=== PATIENT | male | born 1935 | race Caucasian/White ===

== ENCOUNTER 2016-10-14 14:28 | Inpatient (IN) | payer OTHER, MEDICARE ==
[~2016-10-14] VITALS: Ht 167.6 cm; Wt 107.8 kg
[2016-10-14] VITALS (10 sets, daily range): BP systolic 65–129; BP diastolic 49–69; PULSE 109–132; RESP 16–21; TEMP 98.2–98.5; O2SAT 96–100
[2016-10-14] MEDS ORDERED: PROPOFOL 500 MG/50 ML INJ 50 ML ONE (14:37)
[2016-10-14] MEDS ORDERED: PROPOFOL 1000 MG/100 ML INJ 100 ML ONE (14:39)
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
[2016-10-14 15:02] LABS: AUTOMATED NEUTROPHIL # 10.4 TH/MM3 (1.8-7.7); BASOPHIL # 0.1 TH/MM3 (0-0.2); BASOPHIL % 0.8 % (0.0-2.0); EOSINOPHIL # 0.3 TH/MM3 (0-0.4); EOSINOPHIL % 1.9 % (0.0-4.0); HEMATOCRIT 32.5 % (39.0-51.0); HEMO FLAGS DIFF FINAL; I-STAT POTASSIUM 3.7 MMOL/L (3.5-4.9); I-STAT SODIUM 143 MMOL/L (138-146); LYMPHOCYTE # 2.8 TH/MM3 (1.0-4.8); MEAN CELL VOLUME 89.7 FL (80.0-100.0); MEAN CORPUSCULAR HEMOGLOBIN 30.1 PG (27.0-34.0); MEAN CORPUSCULAR HGB CONC 33.6 % (32.0-36.0); NEUT % 71.3 % (16.0-70.0); PLATELET COUNT 356 TH/MM3 (150-450); RED BLOOD COUNT 3.62 MIL/MM3 (4.50-5.90); RED CELL DISTRIBUTION WIDTH 13.9 % (11.6-17.2); WHITE BLOOD COUNT 14.6 TH/MM3 (4.0-11.0)
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
[2016-10-14] MEDS ORDERED: MIDAZOLAM HCL 5 MG/ML VIAL (1 ML) ONE (15:11)
[2016-10-14] MEDS ORDERED: SODIUM CHLORIDE 0.9% FLUSH 10 ML FLUSH IV FLUSH PRN (15:15)
[2016-10-14] MEDS ORDERED: MISCELLANEOUS NURSING INFORMATION XX SCH (15:15)
[2016-10-14] MEDS ORDERED: CHLORHEXIDINE GLUCONATE 2 % 1 PACK (2 CLOTHS) TOP PRN (15:15)
[2016-10-14 15:16] LABS: PROTHROMBIN TIME - PATIENT 11.5 SEC (9.8-11.6)
[2016-10-14] MEDS ORDERED: LABETALOL HCL 100 MG/20 ML VIAL ONE (15:19)
[2016-10-14 15:20] LABS: APTT (PATIENT) 21.2 SEC (24.3-30.1)
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
[2016-10-14] MEDS: PANTOPRAZOLE SODIUM 40 MG VIAL IV SCH (15:30)
[2016-10-14] MEDS: LACTULOSE SYRUP 20 GM/30 ML CUP PO SCH (15:30)
[2016-10-14] MEDS ORDERED: IOHEXOL 350 MG/ML 10 ML VIAL (for RAD DIAG) IV ONE (15:39)
[2016-10-14] MEDS: SODIUM CHLOR 0.9% 1000 ML INJ 1,000 ML IV SCH (16:00)
[2016-10-14] MEDS ORDERED: ROCURONIUM INJ 50 MG/5 ML VIAL ONE (16:08)
[2016-10-14] MEDS ORDERED: ETOMIDATE 20 MG/10 ML VIAL ONE (16:08)
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
[2016-10-14] MEDS ORDERED: fentaNYL DRIP 250 ML IV SCH (16:15)
[2016-10-14] MEDS ORDERED: PROPOFOL 1000 MG/100 ML INJ 100 ML IV SCH (16:15)
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
[2016-10-14] MEDS ORDERED: NOREPINEPHRINE 4 MG/4 ML AMP ONE (16:17)
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
[2016-10-14] MEDS ORDERED: 3% SALINE INJ 500 ML IV SCH (16:30)
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
[2016-10-14 16:36] LABS: BLOOD GAS CARBOXYHEMOGLOBIN 0.5 % (0-4); BLOOD GAS HCO3 22 mmol/L (22-26); BLOOD GAS METHEMOGLOBIN 1.6 % (0-2); BLOOD GAS O2 HGB SATURATION 97 % (90-100); BLOOD GAS OXYGEN CONTENT 12.9 Vol % (12.0-20.0); BLOOD GAS PCO2 44 mmHg (38-42); BLOOD GAS PO2 258 mmHg (61-120); CRITICAL VALUE NO; TEMP CORR TO 98.6
[2016-10-14 16:37] LABS: DRAW SITE RT BRACHIAL; FIO2 100 %; NUMBER OF ARTERIAL PUNCTURES 2; OXYGEN DEVICE VENTILATOR; STAT NO; ULNAR PULSE PRESENT
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
--- NOTE | 2016-10-14 17:31 | RADRPT ---
EXAM DATE/TIME: 10/14/2016 16:48 [facility] COMPARISON: CT THORAX W CONTRAST, October 14, 2016, 15:24. CHEST SINGLE AP, October 14, 2016, 14:24. INDICATIONS : Evaluate for central line placement. MEDICAL HISTORY : None. SURGICAL HISTORY : None. ENCOUNTER: Subsequent ACUITY: 1 day PAIN SCORE: Non-responsive. LOCATION: chest FINDINGS: A single portable frontal view of the chest shows interval placement of a left subclavian central javy e. Tip is at the cava atrial junction. No pneumothorax. Tip of the endotracheal tube 3 cm proximal to the ashtyn. Nasogastric tube coiled in the stomach. Scattered areas of consolidation involving the l yuridia bases bilaterally. These are unchanged. Heart is normal in size. No discrete effusion. CONCLUSION: 1. Central line in good position without pneumothorax. Stable basilar atelectasis versus infiltrates. Giorgi Razo Jr., MD on October 14, 2016 at 17:28 Board Certified Radiologist. This report was verified electronically.
--- NOTE | 2016-10-14 17:35 | RADRPT ---
EXAM DATE/TIME: 10/14/2016 16:55 [facility] COMPARISON: No previous studies available for comparison. INDICATIONS : Swelling and abation to proximal tibia. MEDICAL HISTORY : None. SURGICAL HISTORY : None. ENCOUNTER: Initial ACUITY: 1 day PAIN SCORE: Non-responsive. LOCATION: Left Tib/Fib FINDINGS: Two view examination of the left tibia demonstrates no evidence of fracture or dislocation. Bony min eralization is normal. The soft tissue structures are intact. CONCLUSION: No acute disease. Giorgi Razo Jr., MD on October 14, 2016 at 17:33 Board Certified Radiologist. This report was verified electronically.
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
[2016-10-14] MEDS ORDERED: MAGNESIUM SULFATE INJ 2 GM in SODIUM CHLORIDE 0.9% INJ 96 ML IV PRN (18:00)
[2016-10-14] MEDS ORDERED: POTASSIUM PHOSPHATE MONOBASIC 500 MG TAB PO PRN (18:00)
[2016-10-14] MEDS ORDERED: MAGNESIUM SULFATE INJ 4 GM in SODIUM CHLORIDE 0.9% INJ 92 ML IV PRN (18:00)
[2016-10-14] MEDS ORDERED: MAGNESIUM OXIDE 400 MG TAB PO PRN (18:00)
[2016-10-14] MEDS ORDERED: POTASSIUM CHLOR 40 MEQ PREMIX 100 ML IV PRN ×2 (18:00)
[2016-10-14] MEDS ORDERED: MIDAZOLAM 100 MG/ML INJ 100 ML IV SCH (18:00)
[2016-10-14] MEDS ORDERED: SODIUM PHOSPHATE INJ 30 MMOL in SODIUM CHLOR 0.9% 250 ML INJ 240 ML IV PRN (18:00)
[2016-10-14] MEDS ORDERED: POTASSIUM PHOSPHATE MONOBASIC 500 MG TAB PO/TUBE PRN (18:00)
[2016-10-14] MEDS ORDERED: POTASSIUM CHLOR 20 MEQ PREMIX 100 ML IV PRN ×2 (18:00)
[2016-10-14] MEDS ORDERED: POTASSIUM CHLORIDE 25 MEQ EFFERVESCENT TAB PO PRN (18:00)
[2016-10-14] MEDS ORDERED: 3% SALINE INJ 500 ML IV ONE (18:15)
[2016-10-14] MEDS ORDERED: GLUCAGON 1 MG/ML VIAL OTHER PRN (18:15)
[2016-10-14] MEDS ORDERED: DEXTROSE 50% IN WATER 50 ML VIAL(D50) IV PUSH PRN (18:15)
[2016-10-14] MEDS: INSULIN ASPART SUPPLEMENTAL SCALE SQ SCH (18:15)
[2016-10-14 18:49] LABS: AUTOMATED NEUTROPHIL # 16.3 TH/MM3 (1.8-7.7); BASOPHIL % 0.3 % (0.0-2.0); EOSINOPHIL % 0.2 % (0.0-4.0); HEMATOCRIT 28.4 % (39.0-51.0); HEMO FLAGS DIFF FINAL; LYMPH % 9.4 % (9.0-44.0); LYMPHOCYTE # 1.8 TH/MM3 (1.0-4.8); MEAN CELL VOLUME 90.8 FL (80.0-100.0); MEAN CORPUSCULAR HEMOGLOBIN 29.4 PG (27.0-34.0); MEAN CORPUSCULAR HGB CONC 32.4 % (32.0-36.0); MONO % 5.6 % (0.0-8.0); NEUT % 84.5 % (16.0-70.0); PLATELET COUNT 257 TH/MM3 (150-450); RED BLOOD COUNT 3.13 MIL/MM3 (4.50-5.90); RED CELL DISTRIBUTION WIDTH 13.7 % (11.6-17.2); WHITE BLOOD COUNT 19.3 TH/MM3 (4.0-11.0)
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
[2016-10-14 19:45] LABS: BLOOD GAS BASE EXCESS -6.2 mmol/L (-2-2); BLOOD GAS CARBOXYHEMOGLOBIN 0.5 % (0-4); BLOOD GAS HCO3 18 mmol/L (22-26); BLOOD GAS METHEMOGLOBIN 1.5 % (0-2); BLOOD GAS O2 HGB SATURATION 97 % (90-100); BLOOD GAS OXYGEN CONTENT 13.2 Vol % (12.0-20.0); BLOOD GAS PCO2 34 mmHg (38-42); BLOOD GAS PO2 168 mmHg (61-120); BLOOD GAS TOTAL HGB 9.5 G/DL (12.0-16.0); CRITICAL VALUE NO; OXYGEN DEVICE VENTILATOR; TEMP CORR TO 98.6
[2016-10-14 19:46] LABS: DRAW SITE ART LINE; FIO2 70 %; STAT NO; VENT SETTINGS PRVC/AC
[2016-10-14] MEDS: RESP: ALBUTEROL 2.5 MG/IPRATROPIUM 0.5 MG NEB (SCH) NEB (20:41)
[2016-10-14] MEDS: PROPOFOL 1000 MG/100 ML INJ 100 ML IV SCH (21:03)
--- NOTE | 2016-10-14 21:06 | PD.PROCEDR ---
Procedure Note Procedure Radial arterial line A time-out was completed verifying correct patient, procedure, site, positioning , and special equipment if applicable. Allens test was performed to ensure adequate perfusion. The patients right wrist was prepped and draped in sterile fashion. 1% Lidocaine was used to anesthetize the area. A 18G Arrow arterial line was introduced into the radial artery. The catheter was threaded over the guide wire and the needle was removed with appropriate pulsatile blood return. The catheter was then sutured in place to the skin and a sterile dressing applied. Perfusion to the extremity distal to the point of catheter insertion was checked and found to be adequate. Estimated Blood Loss: 1ml The patient tolerated the procedure well and there were no complications. Raza Ponce MD October 14, 2016 21:06
[2016-10-14] MEDS ORDERED: SODIUM CHLOR 0.9% 1000 ML INJ 3,000 ML IV ONE (21:30)
[2016-10-14] MEDS ORDERED: TERBUTALINE INJ 1 MG/ML AMP SQ PRN (21:45)
[2016-10-14] MEDS: CHLORHEXIDINE 0.12% (ORAL KIT) 15 ML CUP MT SCH (21:53)
[2016-10-14] MEDS: SODIUM CHLORIDE 0.9% FLUSH 10 ML FLUSH IV FLUSH SCH (21:54)
[2016-10-14] MEDS ORDERED: NOREPINEPHRINE INJ 4 MG in SODIUM CHLOR 0.9% 250 ML INJ 250 ML IV SCH (22:00)
[2016-10-14 22:05] LABS: BLOOD GAS BASE EXCESS -6.8 mmol/L (-2-2); BLOOD GAS CARBOXYHEMOGLOBIN 0.5 % (0-4); BLOOD GAS HCO3 18 mmol/L (22-26); BLOOD GAS METHEMOGLOBIN 1.5 % (0-2); BLOOD GAS O2 HGB SATURATION 97 % (90-100); BLOOD GAS OXYGEN CONTENT 10.6 Vol % (12.0-20.0); BLOOD GAS PCO2 36 mmHg (38-42); BLOOD GAS PO2 216 mmHg (61-120); BLOOD GAS TOTAL HGB 7.4 G/DL (12.0-16.0); CRITICAL VALUE NO; OXYGEN DEVICE VENTILATOR; TEMP CORR TO 98.6
[2016-10-14 22:06] LABS: DRAW SITE ART LINE; FIO2 60 %; STAT NO; VENT SETTINGS PRVC/AC
[2016-10-14 23:55] LABS: BICARBONATE 19.6 MEQ/L (21.0-32.0); MAGNESIUM 0.9 MG/DL (1.5-2.5); POTASSIUM 3.6 MEQ/L (3.5-5.1)
[2016-10-15] VITALS (25 sets, daily range): BP systolic 111–154; BP diastolic 46–60; PULSE 97–116; RESP 15–18; TEMP 98.4–99.3; O2SAT 99–100
[2016-10-15 00:11] LABS: CALCIUM-PROTEIN CORRECTED 7.9 MG/DL (8.5-10.1)
[2016-10-15] MEDS: INSULIN ASPART SUPPLEMENTAL SCALE SQ SCH ×4 (00:18→18:00)
[2016-10-15] MEDS: PROPOFOL 1000 MG/100 ML INJ 100 ML IV SCH ×3 (00:18→17:17)
[2016-10-15] MEDS: SODIUM CHLOR 0.9% 1000 ML INJ 1,000 ML IV SCH ×3 (00:19→19:00)
[2016-10-15] MEDS: RESP: ALBUTEROL 2.5 MG/IPRATROPIUM 0.5 MG NEB (SCH) NEB ×4 (03:34→19:42)
[2016-10-15] MEDS: CHLORHEXIDINE GLUCONATE 2 % 1 PACK (2 CLOTHS) TOP SCH (04:00)
[2016-10-15 04:53] LABS: BLOOD GAS BASE EXCESS -8.6 mmol/L (-2-2); BLOOD GAS CARBOXYHEMOGLOBIN 0.8 % (0-4); BLOOD GAS HCO3 16 mmol/L (22-26); BLOOD GAS METHEMOGLOBIN 1.2 % (0-2); BLOOD GAS O2 HGB SATURATION 96 % (90-100); BLOOD GAS OXYGEN CONTENT 10.2 Vol % (12.0-20.0); BLOOD GAS PCO2 30 mmHg (38-42); BLOOD GAS PO2 124 mmHg (61-120); BLOOD GAS TOTAL HGB 7.4 G/DL (12.0-16.0); CRITICAL VALUE YES; OXYGEN DEVICE VENTILATOR; TEMP CORR TO 98.6
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
[2016-10-15 04:54] LABS: VENT SETTINGS PRVC/AC
[2016-10-15 04:55] LABS: DRAW SITE ART LINE; FIO2 40 %; STAT NO
[2016-10-15] MEDS ORDERED: SODIUM CHLOR 0.9% 1000 ML INJ 1,000 ML IV SCH (05:00)
[2016-10-15 05:03] LABS: AUTOMATED NEUTROPHIL # 11.4 TH/MM3 (1.8-7.7); BASOPHIL % 0.3 % (0.0-2.0); HEMATOCRIT 22.8 % (39.0-51.0); HEMO FLAGS DIFF FINAL; LYMPH % 4.5 % (9.0-44.0); LYMPHOCYTE # 0.6 TH/MM3 (1.0-4.8); MEAN CELL VOLUME 90.4 FL (80.0-100.0); MEAN CORPUSCULAR HEMOGLOBIN 29.1 PG (27.0-34.0); MEAN CORPUSCULAR HGB CONC 32.2 % (32.0-36.0); MONO % 7.7 % (0.0-8.0); NEUT % 87.5 % (16.0-70.0); PLATELET COUNT 147 TH/MM3 (150-450); RED BLOOD COUNT 2.53 MIL/MM3 (4.50-5.90); RED CELL DISTRIBUTION WIDTH 13.9 % (11.6-17.2); WHITE BLOOD COUNT 13.1 TH/MM3 (4.0-11.0)
[2016-10-15 05:24] LABS: BICARBONATE 18.1 MEQ/L (21.0-32.0); POTASSIUM 3.8 MEQ/L (3.5-5.1)
[2016-10-15 05:35] LABS: CALCIUM-PROTEIN CORRECTED 7.7 MG/DL (8.5-10.1)
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
[2016-10-15] MEDS ORDERED: DIATRIZOATE MEGLUM/DIATRIZOATE SOD 9 ML CUP PO ONE (08:30)
[2016-10-15] MEDS: PANTOPRAZOLE SODIUM 40 MG VIAL IV SCH (08:54)
[2016-10-15] MEDS: CHLORHEXIDINE 0.12% (ORAL KIT) 15 ML CUP MT SCH ×2 (08:55→20:13)
[2016-10-15] MEDS: LACTULOSE SYRUP 20 GM/30 ML CUP PO SCH (08:55)
[2016-10-15] MEDS: SODIUM CHLORIDE 0.9% FLUSH 10 ML FLUSH IV FLUSH SCH ×2 (08:56→20:13)
--- NOTE | 2016-10-15 09:10 | RADRPT ---
EXAM DATE/TIME: 10/15/2016 08:21 [facility] COMPARISON: No previous studies available for comparison. INDICATIONS : Syncope. MEDICAL HISTORY : Hypertension. Carcinoma, pancreas. Syncope. Hyperlipidemia. Anticoagulant therapy, Aspirin. Arthri tis. Diabetes. SURGICAL HISTORY : Pancreatectomy. Left knee replacement. Left wrist surgery. ENCOUNTER: Initial ACUITY: 1 day PAIN SCORE: Nonresponsive. LOCATION: Bilateral neck PEAK SYSTOLIC VELOCITIES (cm/sec): ICA/CCA RATIO: Right: 1.2 Left: 1.2 ICA: Right: 104 Left: 128 CCA: Right: 87 Left: 109 ECA: Right: 143 Left: 233 VERTEBRAL: Right: 118 antegrade Left: 99 antegrade Elevated flow velocities and ICA/CCA ratios have been found to correlate with increased degrees of vessel stenosis, calculated as percentage of diameter relative to a normal segment of distal ICA/CCA FINDINGS: RIGHT CAROTID: Minimal plaque seen in the bulb and proximal internal carotid artery. LEFT CAROTID: No significant stenosis is visualized. The waveforms are within normal limits. VERTEBRAL ARTERIES: Antegrade flow is seen in both vertebral arteries. MISCELLANEOUS: None. CONCLUSION: Trace atherosclerotic plaque of the right carotid bifurcation. No hemodynamically significant narrowi ng on either side. Andrzej Vasquez MD on October 15, 2016 at 9:07 Board Certified Radiologist. This report was verified electronically.
[2016-10-15] MEDS: PHENYLEPHRINE INJ 40 MG in SODIUM CHLORID 0.9% 500 ML INJ 496 ML IV SCH ×2 (09:38→17:55)
[2016-10-15] MEDS: levETIRAcetam 500 MG/NS 100 ML IV SCH ×4 (10:17→20:13)
[2016-10-15] MEDS ORDERED: CALC1TAB63 PO (11:41)
[2016-10-15] MEDS ORDERED: ATOR40TA16 PO (11:41)
[2016-10-15] MEDS ORDERED: EXENINJ SQ (11:41)
[2016-10-15] MEDS ORDERED: ASPI81TA5 OTHER (11:41)
[2016-10-15] MEDS ORDERED: CURCPOW PO (11:41)
[2016-10-15] MEDS ORDERED: METF1000 PO (11:44)
[2016-10-15] MEDS ORDERED: LOSA100T2 PO (11:44)
[2016-10-15] MEDS ORDERED: GLIP1TAB51 PO (11:44)
[2016-10-15] MEDS ORDERED: VITA500T49 PO (11:44)
[2016-10-15] MEDS ORDERED: VIAG100T PO (11:44)
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
--- NOTE | 2016-10-15 12:15 | EC ---
Study Study Date:10/15/2016 STUDY CONCLUSIONS SUMMARY - Left ventricle: The cavity size was normal. Wall thickness was normal. Systolic function was hyperdynamic. The estimated ejection fraction was in the range of 65% to 70%. - Aortic valve: Valve area: 1.66cm^2 (Vmax). - Pulmonic valve: Peak gradient: 13mm Hg (S). If LV function is below 40, please consider prescribing an ACEI or ARB or document rationale for non-use. PROCEDURE DATA STUDY STATUS: Elective. Procedure: Transthoracic echocardiography. Image quality was good. Scanning was performed from the parasternal, apical, and subcostal acoustic windows. Study completion: The patient tolerated the procedure well. Transthoracic echocardiography. M-mode, complete 2D, complete spectral Doppler, and color Doppler. Patient status: Inpatient. CARDIAC ANATOMY LEFT VENTRICLE: Not well visualized. The cavity size was normal. Wall thickness was normal. Systolic function was hyperdynamic. The estimated ejection fraction was in the range of 65% to 70%. Images were inadequate for LV wall motion assessment. AORTIC VALVE: Trileaflet; normal thickness leaflets. Doppler: Transvalvular velocity was within the normal range. There was no stenosis. No regurgitation. Valve area: 1.66cm^2 (Vmax). Mean gradient: 9mm Hg (S). Peak gradient: 18mm Hg (S). AORTA: Aortic root: The aortic root was normal in size. MITRAL VALVE: Structurally normal valve. Doppler: Transvalvular velocity was within the normal range. There was no evidence for stenosis. No regurgitation. Peak gradient: 2mm Hg (D). LEFT ATRIUM: The atrium was normal in size. RIGHT VENTRICLE: The cavity size was normal. Wall thickness was normal. PULMONIC VALVE: Doppler: Transvalvular velocity was within the normal range. There was no evidence for stenosis. No regurgitation. Peak gradient: 13mm Hg (S). TRICUSPID VALVE: Structurally normal valve. Doppler: Transvalvular velocity was within the normal range. Trace regurgitation. PULMONARY ARTERY: The main pulmonary artery was normal-sized. Systolic pressure was within the normal range. RIGHT ATRIUM: The atrium was normal in size. PERICARDIUM: There was no pericardial effusion. SYSTEMIC VEINS: Inferior vena cava: The vessel was normal in size. BASIC MEASUREMENTS ADULT NORMAL Left ventricle LV internal dimension, ED, chordal level, 47 mm 43-52 PLAX LV internal dimension, ES, chordal level, 29.9 mm 23-38 PLAX Fractional shortening, chordal level, PLAX 36 % >29 LV posterior wall thickness, ED 11.7 mm IVS/LVPW ratio, ED 1.03 <1.3 Ventricular septum Septal thickness, ED 12 mm Aortic valve Leaflet separation 19 mm 15-26 Right ventricle RV internal dimension, ED, PLAX 30 mm 19-38 BASIC MEASUREMENTS ADULT NORMAL Aortic valve Leaflet separation 19 mm 15-26 Aorta Root diameter, ED 31 mm 20-37 Left atrium Anterior-posterior dimension, ES 38 mm 19-40 LA/aortic root ratio 1.23 DOPPLER MEASUREMENTS ADULT NORMAL Main pulmonary artery Pressure, S 23 mm Hg =30 Aortic valve Peak velocity, S 210 cm/s Mean velocity, S 136 cm/s VTI, S 32.5 cm Mean gradient, S 9 mm Hg Peak gradient, S 18 mm Hg Valve area, Vmax 1.66 cm^2 Mitral valve Peak E-wave velocity 71.1 cm/s Peak A-wave velocity 89.8 cm/s Deceleration time *99 ms 150-230 Peak gradient, D 2 mm Hg Peak E/A ratio 0.8 Tricuspid valve Regurgitant peak velocity 254 cm/s Peak RV-RA gradient, S 26 mm Hg Maximal regurgitant velocity 254 cm/s Systemic veins Estimated CVP 10 mm Hg Right ventricle RV pressure, S *36 mm Hg <30 Pulmonic valve Peak velocity, S 179 cm/s Peak gradient, S 13 mm Hg LEGEND: Mean values are shown as u=mean value. Asterisk (*) esqueda values outside specified normal range. Prepared and signed by Kyle Daley [id number]
[2016-10-15] MEDS: fentaNYL DRIP 250 ML IV SCH (13:53)
[2016-10-15 14:03] LABS: HEMATOCRIT 29.3 % (39.0-51.0); REVIEW FLAG FINAL
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
[2016-10-15] MEDS ORDERED: SODIUM CHLOR 0.9% 1000 ML INJ 1,000 ML IV ONE (18:15)
[2016-10-15] MEDS: 3% SALINE INJ 500 ML IV SCH (18:23)
--- NOTE | 2016-10-15 18:45 | EKG ---
Date Performed: 10/14/2016 Time Performed: 14:47:31 PTAGE: 89 years EKG: ATRIAL FLUTTER/TACHYCARDIA WITH RAPID VENTRICULAR RESPONSE RIGHT BUNDLE BRANCH BLOCK ABNORM AL ECG INTERPRETATION BASED ON A DEFAULT AGE OF 40 YEARS NO PREVIOUS TRACING DOCTOR: Juan Ramon John Interpretating Date/Time 10/15/2016 18:43:03
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
[2016-10-16] VITALS (17 sets, daily range): BP systolic 109–136; BP diastolic 50–64; PULSE 104–113; RESP 15–19; TEMP 97.9–98.9; O2SAT 99–100
[2016-10-16] MEDS: INSULIN ASPART SUPPLEMENTAL SCALE SQ SCH ×4 (01:40→18:53)
[2016-10-16] MEDS: PROPOFOL 1000 MG/100 ML INJ 100 ML IV SCH ×3 (01:41→18:54)
[2016-10-16] MEDS: RESP: ALBUTEROL 2.5 MG/IPRATROPIUM 0.5 MG NEB (SCH) NEB ×4 (03:31→19:30)
[2016-10-16] MEDS: CHLORHEXIDINE GLUCONATE 2 % 1 PACK (2 CLOTHS) TOP SCH (05:34)
[2016-10-16 07:23] LABS: BICARBONATE 17.2 MEQ/L (21.0-32.0); POTASSIUM 3.7 MEQ/L (3.5-5.1)
[2016-10-16 07:52] LABS: HEMATOCRIT 26.4 % (39.0-51.0); MEAN CELL VOLUME 87.1 FL (80.0-100.0); MEAN CORPUSCULAR HEMOGLOBIN 28.9 PG (27.0-34.0); MEAN CORPUSCULAR HGB CONC 33.2 % (32.0-36.0); PLATELET COUNT 120 TH/MM3 (150-450); RED BLOOD COUNT 3.03 MIL/MM3 (4.50-5.90); REVIEW FLAG FINAL; WHITE BLOOD COUNT 8.1 TH/MM3 (4.0-11.0)
[2016-10-16 08:39] LABS: CALCIUM-PROTEIN CORRECTED 7.3 MG/DL (8.5-10.1)
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
[2016-10-16] MEDS: SODIUM CHLORIDE 0.9% FLUSH 10 ML FLUSH IV FLUSH SCH ×2 (09:00→21:00)
[2016-10-16] MEDS: PANTOPRAZOLE SODIUM 40 MG VIAL IV SCH (09:22)
[2016-10-16] MEDS: CHLORHEXIDINE 0.12% (ORAL KIT) 15 ML CUP MT SCH ×2 (09:22→20:00)
[2016-10-16] MEDS: levETIRAcetam 500 MG/NS 100 ML IV SCH ×4 (09:23→21:49)
[2016-10-16] MEDS: LACTULOSE SYRUP 20 GM/30 ML CUP PO SCH (09:23)
--- NOTE | 2016-10-16 10:37 | RADRPT ---
EXAM DATE/TIME: 10/16/2016 10:20 [place] COMPARISON: CT BRAIN W/O CONTRAST, October 15, 2016, 14:14. CT ABDOMEN & PELVIS W/O CONTRAST, October 15, 2016, 14:14. INDICATIONS : Follow up of evolving hemorrhages. RADIATION DOSE: 56.37 CTDIvol (mGy) MEDICAL HISTORY : Hypertension. Diabetes mellitus type 2. SURGICAL HISTORY : None. ENCOUNTER: Subsequent ACUITY: 2 days PAIN SCALE: Non-responsive LOCATION: cranial TECHNIQUE: Multiple contiguous axial images were obtained of the head. Using automated exposure control and adj ustment of the mA and/or kV according to patient size, radiation dose was kept as low as reasonably a chievable to obtain optimal diagnostic quality images. FINDINGS: The examination demonstrates extensive subarachnoid hemorrhage. There is intraventricular hemorrhage as well. There is an intracranial pressure monitor in place. Comparison is made to previous study ambika ed 10/15/16. The overall amount of intraventricular hemorrhage and subarachnoid hemorrhage is similar. No new areas of hemorrhage are identified. The sulci and gyri appear intact. No significant subdural or epidural hemorrhage is seen. The osseous structures of the skull demonstrate a linear fracture through the superior left orbit and a nondisplaced fracture vertically through the clivus. CONCLUSION: 1. Stable diffuse subarachnoid and intraventricular hemorrhage. 2. Stable skull fractures. Pantera Steen MD on October 16, 2016 at 10:34 Board Certified Radiologist. This report was verified electronically.
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
[2016-10-16] MEDS: fentaNYL DRIP 250 ML IV SCH (12:22)
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
[2016-10-16] MEDS: DOCUSATE SODIUM 50 MG/SENNA 8.6 MG TAB PO SCH (21:49)
[2016-10-17] VITALS (18 sets, daily range): BP systolic 111–156; BP diastolic 48–75; PULSE 103–132; RESP 13–28; TEMP 97.5–99; O2SAT 98–100
[2016-10-17 01:03] LABS: BLOOD GAS BASE EXCESS -8.9 mmol/L (-2-2); BLOOD GAS CARBOXYHEMOGLOBIN 0.9 % (0-4); BLOOD GAS HCO3 16 mmol/L (22-26); BLOOD GAS METHEMOGLOBIN 1.3 % (0-2); BLOOD GAS O2 HGB SATURATION 96 % (90-100); BLOOD GAS OXYGEN CONTENT 11.8 Vol % (12.0-20.0); BLOOD GAS PCO2 32 mmHg (38-42); BLOOD GAS PO2 138 mmHg (61-120); BLOOD GAS TOTAL HGB 8.5 G/DL (12.0-16.0); TEMP CORR TO 98.6
[2016-10-17] MEDS: PROPOFOL 1000 MG/100 ML INJ 100 ML IV SCH ×4 (01:03→16:33)
[2016-10-17] MEDS: fentaNYL DRIP 250 ML IV SCH (01:03)
[2016-10-17] MEDS: 3% SALINE INJ 500 ML IV SCH (01:03)
[2016-10-17 01:05] LABS: CRITICAL VALUE YES; OXYGEN DEVICE VENTILATOR
[2016-10-17 01:06] LABS: DRAW SITE ART LINE; FIO2 40 %; STAT NO; VENT SETTINGS SEE COMMENTS
[2016-10-17] MEDS: SODIUM CHLOR 0.9% 1000 ML INJ 1,000 ML IV SCH ×3 (03:00→04:01)
[2016-10-17] MEDS: RESP: ALBUTEROL 2.5 MG/IPRATROPIUM 0.5 MG NEB (SCH) NEB ×4 (03:03→20:30)
[2016-10-17] MEDS: CHLORHEXIDINE GLUCONATE 2 % 1 PACK (2 CLOTHS) TOP SCH (04:00)
[2016-10-17 04:38] LABS: AUTOMATED NEUTROPHIL # 5.5 TH/MM3 (1.8-7.7); BASOPHIL # 0.1 TH/MM3 (0-0.2); BASOPHIL % 1.5 % (0.0-2.0); EOSINOPHIL # 0.2 TH/MM3 (0-0.4); EOSINOPHIL % 3.2 % (0.0-4.0); HEMATOCRIT 23.2 % (39.0-51.0); HEMO FLAGS DIFF FINAL; LYMPH % 5.3 % (9.0-44.0); LYMPHOCYTE # 0.4 TH/MM3 (1.0-4.8); MEAN CELL VOLUME 88.1 FL (80.0-100.0); MEAN CORPUSCULAR HEMOGLOBIN 28.9 PG (27.0-34.0); MEAN CORPUSCULAR HGB CONC 32.8 % (32.0-36.0); MONO % 6.9 % (0.0-8.0); NEUT % 83.1 % (16.0-70.0); PLATELET COUNT 108 TH/MM3 (150-450); RED BLOOD COUNT 2.64 MIL/MM3 (4.50-5.90); RED CELL DISTRIBUTION WIDTH 16.1 % (11.6-17.2); WHITE BLOOD COUNT 6.6 TH/MM3 (4.0-11.0)
[2016-10-17 05:33] LABS: BICARBONATE 17.1 MEQ/L (21.0-32.0); POTASSIUM 3.5 MEQ/L (3.5-5.1); TOTAL BILIRUBIN ADULT 0.5 MG/DL (0.2-1.0)
[2016-10-17 05:40] LABS: CALCIUM-PROTEIN CORRECTED 7.2 MG/DL (8.5-10.1)
[2016-10-17] MEDS: INSULIN ASPART SUPPLEMENTAL SCALE SQ SCH ×4 (06:00→19:00)
--- NOTE | 2016-10-17 06:24 | RADRPT ---
EXAM DATE/TIME: 10/17/2016 04:04 [facility] COMPARISON: CHEST SINGLE AP, October 15, 2016, 4:18. INDICATIONS : Shortness of breath, possible pulmonary disease. MEDICAL HISTORY : None. SURGICAL HISTORY : None. ENCOUNTER: Subsequent ACUITY: 4 - 6 days PAIN SCORE: Non-responsive. LOCATION: Bilateral chest FINDINGS: A single view of the chest demonstrates cardiomegaly and bibasilar airspace disease, greater in the l eft lower lobe. Suspect small left pleural effusion. Endotracheal tube, nasogastric tube and left sub clavian central line are stable in position. Osseous structures are intact. CONCLUSION: Cardiomegaly with bibasilar airspace disease. Kota Baker MD on October 17, 2016 at 6:19 Board Certified Radiologist. This report was verified electronically.
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
[2016-10-17] MEDS: CHLORHEXIDINE 0.12% (ORAL KIT) 15 ML CUP MT SCH ×2 (08:58→20:00)
[2016-10-17] MEDS: levETIRAcetam 500 MG/NS 100 ML IV SCH ×4 (08:59→20:05)
[2016-10-17] MEDS: LACTULOSE SYRUP 20 GM/30 ML CUP PO SCH (08:59)
[2016-10-17] MEDS: SODIUM CHLORIDE 0.9% FLUSH 10 ML FLUSH IV FLUSH SCH ×2 (08:59→21:00)
[2016-10-17] MEDS: DOCUSATE SODIUM 50 MG/SENNA 8.6 MG TAB PO SCH ×2 (08:59→20:05)
[2016-10-17] MEDS: PANTOPRAZOLE SODIUM 40 MG VIAL IV SCH ×2 (08:59→21:00)
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
[2016-10-17] MEDS ORDERED: FUROSEMIDE 40 MG/4 ML VIAL IV PUSH ONE (11:00)
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
[2016-10-17 21:41] LABS: HEMATOCRIT 23.9 % (39.0-51.0); REVIEW FLAG FINAL
[2016-10-18] VITALS (18 sets, daily range): BP systolic 107–133; BP diastolic 54–62; PULSE 110–125; RESP 14–20; TEMP 97.9–99.7; O2SAT 97–100
[2016-10-18] MEDS: RESP: ALBUTEROL 2.5 MG/IPRATROPIUM 0.5 MG NEB (SCH) NEB ×3 (03:44→15:35)
[2016-10-18] MEDS: CHLORHEXIDINE GLUCONATE 2 % 1 PACK (2 CLOTHS) TOP SCH (03:59)
[2016-10-18] MEDS: PROPOFOL 1000 MG/100 ML INJ 100 ML IV SCH ×3 (04:00→20:36)
[2016-10-18 04:47] LABS: AUTOMATED NEUTROPHIL # 5.5 TH/MM3 (1.8-7.7); BASOPHIL % 0.2 % (0.0-2.0); EOSINOPHIL # 0.1 TH/MM3 (0-0.4); EOSINOPHIL % 1.9 % (0.0-4.0); HEMATOCRIT 25.6 % (39.0-51.0); LYMPH % 8.6 % (9.0-44.0); LYMPHOCYTE # 0.6 TH/MM3 (1.0-4.8); MEAN CELL VOLUME 88.3 FL (80.0-100.0); MEAN CORPUSCULAR HGB CONC 32.9 % (32.0-36.0); MONO % 9.6 % (0.0-8.0); NEUT % 79.7 % (16.0-70.0); PLATELET COUNT 113 TH/MM3 (150-450); RED CELL DISTRIBUTION WIDTH 16.3 % (11.6-17.2); WHITE BLOOD COUNT 6.9 TH/MM3 (4.0-11.0)
[2016-10-18 05:07] LABS: HEMO FLAGS AUTO DIFF
[2016-10-18 05:15] LABS: CALCIUM-PROTEIN CORRECTED 7.6 MG/DL (8.5-10.1); POTASSIUM 3.8 MEQ/L (3.5-5.1); TOTAL BILIRUBIN ADULT 0.7 MG/DL (0.2-1.0)
[2016-10-18] MEDS: INSULIN ASPART SUPPLEMENTAL SCALE SQ SCH ×5 (06:00→23:46)
[2016-10-18 06:17] LABS: BLOOD GAS BASE EXCESS -8.2 mmol/L (-2-2); BLOOD GAS HCO3 17 mmol/L (22-26); BLOOD GAS METHEMOGLOBIN 1.5 % (0-2); BLOOD GAS O2 HGB SATURATION 96 % (90-100); BLOOD GAS PCO2 36 mmHg (38-42); BLOOD GAS PO2 162 mmHg (61-120); BLOOD GAS TOTAL HGB 8.6 G/DL (12.0-16.0); CRITICAL VALUE NO; TEMP CORR TO 98.6
[2016-10-18 06:18] LABS: FIO2 40 %; OXYGEN DEVICE VENTILATOR; VENT SETTINGS PRVC
[2016-10-18 06:19] LABS: DRAW SITE ART LINE; STAT NO
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
[2016-10-18] MEDS ORDERED: FUROSEMIDE 20 MG/2 ML VIAL IV PUSH SCH (09:00)
[2016-10-18 09:06] LABS: BANDS 16 % (0-6); EOSINOPHILS 2 % (0-4); METAMYELOCYTES 1 % (0-1); NEUTROPHIL # MANUAL DIFF 4.9 TH/MM3 (1.8-7.7); PLATELET ESTIMATE SMEAR LOW (NORMAL); PLATELET MORPHOLOGY NORMAL (NORMAL); POLYS (SEG NEUTROPHILS) 54 % (16-70); SCAN/DIFF FINAL DIFF MANUAL; WBC DIFF SAMPLE 100
[2016-10-18] MEDS: levETIRAcetam 500 MG/NS 100 ML IV SCH ×4 (09:06→20:34)
[2016-10-18] MEDS: CHLORHEXIDINE 0.12% (ORAL KIT) 15 ML CUP MT SCH ×2 (09:07→20:30)
[2016-10-18] MEDS: LACTULOSE SYRUP 20 GM/30 ML CUP PO SCH (09:07)
[2016-10-18] MEDS: PANTOPRAZOLE SODIUM 40 MG VIAL IV SCH ×2 (09:07→20:30)
[2016-10-18] MEDS: SODIUM CHLORIDE 0.9% FLUSH 10 ML FLUSH IV FLUSH SCH ×2 (09:07→20:30)
[2016-10-18] MEDS: DOCUSATE SODIUM 50 MG/SENNA 8.6 MG TAB PO SCH ×2 (09:13→20:31)
[2016-10-18] MEDS: PROPRANOLOL HCL 10 MG TAB PO SCH ×3 (09:13→20:34)
[2016-10-18] MEDS ORDERED: BISACODYL 10 MG SUPP RECTAL ONE (10:00)
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
[2016-10-18] MEDS: fentaNYL DRIP 250 ML IV SCH (13:20)
[2016-10-18] MEDS: SODIUM CHLOR 0.45% 1000 ML INJ 1,000 ML IV SCH (13:21)
[2016-10-19] VITALS (17 sets, daily range): BP systolic 95–130; BP diastolic 46–59; PULSE 106–124; RESP 17–37; TEMP 98.4–101.3; O2SAT 93–100
[2016-10-19] MEDS: CHLORHEXIDINE GLUCONATE 2 % 1 PACK (2 CLOTHS) TOP SCH (04:00)
[2016-10-19 04:01] LABS: AUTOMATED NEUTROPHIL # 6.4 TH/MM3 (1.8-7.7); BASOPHIL % 0.3 % (0.0-2.0); EOSINOPHIL # 0.3 TH/MM3 (0-0.4); EOSINOPHIL % 4.2 % (0.0-4.0); HEMATOCRIT 24.5 % (39.0-51.0); LYMPH % 0.9 % (9.0-44.0); LYMPHOCYTE # 0.1 TH/MM3 (1.0-4.8); MEAN CELL VOLUME 87.8 FL (80.0-100.0); MEAN CORPUSCULAR HEMOGLOBIN 28.8 PG (27.0-34.0); MEAN CORPUSCULAR HGB CONC 32.8 % (32.0-36.0); MONO % 1.2 % (0.0-8.0); NEUT % 93.4 % (16.0-70.0); PLATELET COUNT 107 TH/MM3 (150-450); RED BLOOD COUNT 2.79 MIL/MM3 (4.50-5.90); RED CELL DISTRIBUTION WIDTH 15.9 % (11.6-17.2); WHITE BLOOD COUNT 6.8 TH/MM3 (4.0-11.0)
[2016-10-19 04:07] LABS: HEMO FLAGS AUTO DIFF
[2016-10-19 04:32] LABS: BICARBONATE 19.1 MEQ/L (21.0-32.0); MAGNESIUM 1.4 MG/DL (1.5-2.5); POTASSIUM 3.5 MEQ/L (3.5-5.1)
[2016-10-19 04:33] LABS: CALCIUM-PROTEIN CORRECTED 7.8 MG/DL (8.5-10.1); TOTAL BILIRUBIN ADULT 1.7 MG/DL (0.2-1.0)
[2016-10-19 05:51] LABS: BANDS 36 % (0-6); EOSINOPHILS 3 % (0-4); METAMYELOCYTES 8 % (0-1); MYELOCYTES 1 % (0-0); NEUTROPHIL # MANUAL DIFF 6.2 TH/MM3 (1.8-7.7); POLYS (SEG NEUTROPHILS) 46 % (16-70); WBC DIFF SAMPLE 100
[2016-10-19 05:52] LABS: SCAN/DIFF FINAL DIFF MANUAL
[2016-10-19 05:53] LABS: DOHLE BODIES PRESENT (NONE SEEN); PLATELET ESTIMATE SMEAR LOW (NORMAL); PLATELET MORPHOLOGY NORMAL (NORMAL); TOXIC VACUOLATION PRESENT (NONE SEEN)
[2016-10-19 05:59] LABS: KERATOCYTES OCC (NORMAL)
[2016-10-19] MEDS: INSULIN ASPART SUPPLEMENTAL SCALE SQ SCH ×2 (06:00→12:00)
[2016-10-19 06:01] LABS: ACANTHOCYTES OCC (NORMAL); OVALOCYTES 1+ (NORMAL)
[2016-10-19] MEDS: SODIUM CHLOR 0.45% 1000 ML INJ 1,000 ML IV SCH ×2 (06:11→17:40)
[2016-10-19] MEDS: PROPRANOLOL HCL 10 MG TAB PO SCH ×2 (06:12→14:27)
--- NOTE | 2016-10-19 06:14 | RADRPT ---
EXAM DATE/TIME: 10/19/2016 05:19 [facility] COMPARISON: CHEST SINGLE AP, October 17, 2016, 4:04. INDICATIONS : Shortness of breath, possible pulmonary disease. MEDICAL HISTORY : Hypertension. Diabetes mellitus type II. SURGICAL HISTORY : None. ENCOUNTER: Subsequent ACUITY: 4 - 6 days PAIN SCORE: Non-responsive. LOCATION: Bilateral chest FINDINGS: A single portable frontal view the chest is blurred by motion artifact. No gross infiltrate appreciat ed. Given endotracheal tube 3 cm in the ashtyn. Nasogastric tube coiled in the fundus of the stomach. Left subclavian central line. Heart is normal in size. CONCLUSION: 1. Degraded study by breathing motion artifact. 2. Lungs are grossly clear. Giorgi Razo Jr., MD on October 19, 2016 at 6:12 Board Certified Radiologist. This report was verified electronically.
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
[2016-10-19 08:15] LABS: BLOOD GAS BASE EXCESS -9.7 mmol/L (-2-2); BLOOD GAS CARBOXYHEMOGLOBIN 1.2 % (0-4); BLOOD GAS HCO3 15 mmol/L (22-26); BLOOD GAS METHEMOGLOBIN 1.4 % (0-2); BLOOD GAS O2 HGB SATURATION 93 % (90-100); BLOOD GAS OXYGEN CONTENT 12.4 Vol % (12.0-20.0); BLOOD GAS PCO2 30 mmHg (38-42); BLOOD GAS PO2 89 mmHg (61-120); BLOOD GAS TOTAL HGB 9.3 G/DL (12.0-16.0); CRITICAL VALUE YES; OXYGEN DEVICE VENTILATOR; TEMP CORR TO 98.6
[2016-10-19 08:16] LABS: DRAW SITE ART LINE; FIO2 40 %; NUMBER OF ARTERIAL PUNCTURES 0; STAT NO; ULNAR PULSE PRESENT; VENT SETTINGS PRVC15/600/PEEP5/1.0
[2016-10-19] MEDS ORDERED: SODIUM BICARBONATE 8.4% INJ 50 MEQ/50 ML SYR IV PUSH ONE (09:00)
[2016-10-19] MEDS: levETIRAcetam 500 MG/NS 100 ML IV SCH ×4 (09:29→21:13)
[2016-10-19] MEDS: PANTOPRAZOLE SODIUM 40 MG VIAL IV SCH ×2 (09:30→21:14)
[2016-10-19] MEDS: LACTULOSE SYRUP 20 GM/30 ML CUP PO SCH (09:30)
[2016-10-19] MEDS: DOCUSATE SODIUM 50 MG/SENNA 8.6 MG TAB PO SCH ×2 (09:30→21:00)
[2016-10-19] MEDS: CHLORHEXIDINE 0.12% (ORAL KIT) 15 ML CUP MT SCH ×2 (09:32→20:00)
[2016-10-19] MEDS: SODIUM CHLORIDE 0.9% FLUSH 10 ML FLUSH IV FLUSH SCH ×2 (09:32→21:00)
[2016-10-19] MEDS ORDERED: ALBUMIN HUMAN 5% 25 GM/500 ML BOTTLE IV ONE (10:00)
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
[2016-10-19] MEDS: fentaNYL DRIP 250 ML IV SCH (16:32)
[2016-10-19] MEDS ORDERED: VASOPRESSIN INJ 40 UNITS in SODIUM CHLORIDE 0.9% INJ 98 ML IV SCH (20:15)
[2016-10-19] MEDS ORDERED: ACETAMINOPHEN 1000 MG/100 ML VIAL IV ONE (22:30)
[2016-10-19] MEDS ORDERED: SODIUM CHLOR 0.9% 1000 ML INJ 1,000 ML IV SCH (23:00)
[2016-10-19 23:11] LABS: BLOOD GAS BASE EXCESS -10.6 mmol/L (-2-2); BLOOD GAS CARBOXYHEMOGLOBIN 1.1 % (0-4); BLOOD GAS HCO3 14 mmol/L (22-26); BLOOD GAS METHEMOGLOBIN 1.7 % (0-2); BLOOD GAS O2 HGB SATURATION 92 % (90-100); BLOOD GAS OXYGEN CONTENT 10.5 Vol % (12.0-20.0); BLOOD GAS PCO2 23 mmHg (38-42); BLOOD GAS PO2 78 mmHg (61-120); TEMP CORR TO 98.6
[2016-10-19 23:13] LABS: CRITICAL VALUE YES
[2016-10-19 23:14] LABS: OXYGEN DEVICE VENTILATOR
[2016-10-19 23:15] LABS: DRAW SITE ART LINE; FIO2 40 %; STAT YES; VENT SETTINGS PRVC/AC
[2016-10-20] VITALS: BP 92/44; PULSE 110; RESP 44; TEMP 101.7; O2SAT 94
[2016-10-20] MEDS ORDERED: MORPHINE SULFATE 8 MG/ML INJ IV PUSH ONE (00:30)
[2016-10-20] MEDS ORDERED: LORazepam 2 MG/ML VIAL IV PUSH ONE (00:30)
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
== END 2016-10-20 04:08 | disposition expired | DRG 955 ==
LOC: NEPI 14:28 → EDBD 15:44 → N03A 15:44
PROVIDERS: ADMIT Surgery Trauma Surgery; ATTEND Surgery Trauma Surgery
PROC: 0BH17EZ Insertion of Endotracheal Airway into Trachea, Via Natural or Artificial Opening (ICD-10-PCS; principal; 2016-10-14)
PROC: 00H032Z Insertion of Monitoring Device into Brain, Percutaneous Approach (ICD-10-PCS; 2016-10-14)
PROC: 5A1945Z Respiratory Ventilation, 24-96 Consecutive Hours (ICD-10-PCS; 2016-10-14)
PROC: 4A103BD Monitoring of Intracranial Pressure, Percutaneous Approach (ICD-10-PCS; 2016-10-14)
PROC: 03HY32Z Insertion of Monitoring Device into Upper Artery, Percutaneous Approach (ICD-10-PCS; 2016-10-14)
PROC: 30253N1 (ICD-10-PCS; 2016-10-14)
DX: S06.6X9A Traumatic subarachnoid hemorrhage with loss of consciousness of unspecified duration, initial encounter (principal); S27.322A Contusion of lung, bilateral, initial encounter; S22.43XA Multiple fractures of ribs, bilateral, initial encounter for closed fracture; G93.6 Cerebral edema; J96.91 Respiratory failure, unspecified with hypoxia; J69.0 Pneumonitis due to inhalation of food and vomit; N17.9 Acute kidney failure, unspecified; S36.892A Contusion of other intra-abdominal organs, initial encounter; E87.2 Acidosis; J98.11 Atelectasis; Z99.11 Dependence on respirator [ventilator] status; S02.401A Maxillary fracture, unspecified side, initial encounter for closed fracture; S02.402A Zygomatic fracture, unspecified side, initial encounter for closed fracture; S02.80XA Fracture of other specified skull and facial bones, unspecified side, initial encounter for closed fracture; S06.2X9A Diffuse traumatic brain injury with loss of consciousness of unspecified duration, initial encounter; S06.9X9S Unspecified intracranial injury with loss of consciousness of unspecified duration, sequela; S02.2XXA Fracture of nasal bones, initial encounter for closed fracture; E11.9 Type 2 diabetes mellitus without complications; I48.91 Unspecified atrial fibrillation; I11.9 Hypertensive heart disease without heart failure; F01.50 Vascular dementia, unspecified severity, without behavioral disturbance, psychotic disturbance, mood disturbance, and anxiety; V43.52XA Car driver injured in collision with other type car in traffic accident, initial encounter; Y84.8 Other medical procedures as the cause of abnormal reaction of the patient, or of later complication, without mention of misadventure at the time of the procedure; Z51.5 Encounter for palliative care; Z66 Do not resuscitate; Z96.652 Presence of left artificial knee joint
CPT/HCPCS: 31500; 36430; 36556; 36600; 61210; 70450; 70486; 71010; 71260; 72125; 72170; 73590; 74176; 74177; 80048; 80053; 82435; 82565; 82805; 82947; 82948; 83735; 83930; 84100; 84132; 84155; 84295; 84484; 84520; 85007; 85014; 85018; 85025; 85027; 85610; 85730; 86403; 86850; 86900; 86901; 86920; 87040; 87070; 87086; 87205; 93005; 93306; 93880; 94002; 94003; 94640; 94664; 94770; 96374; 96375; 99291; C9113; G0390; J0131; J1815; J1940; J1953; J2060; J2250; J2270; J2370; J3010; J3475; J3480; J7030; J7040; J7050; L0150; L0172; P9016; P9045; Q9963; Q9967